=== PATIENT | male | born 2000 | race Caucasian/White ===

== ENCOUNTER 2019-08-02 13:11 | Emergency (ER) | payer OTHER ==
[~2019-08-02] VITALS: Ht 182.9 cm; Wt 81.6 kg
[2019-08-02 13:20] VITALS: BP 138/67
--- NOTE | 2019-08-02 13:51 | PHYS DOC ---
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 Patient states he had 1 episode of vomiting this morning and felt dizzy and lightheadedness for a short time that improved spontaneously. Patient states he was able to eat and drink without problem and feels fine right now. Patient denies fever and chills, upper respiratory infection symptoms, sick contact, focal neuro deficit, history of the same problem. 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 Review of Systems Review of Systems Constitutional: Denies fever or chills [] Eyes: Denies change in visual acuity, redness, or eye pain [] HENT: Denies nasal congestion or sore throat [] Respiratory: Denies cough or shortness of breath [] Cardiovascular: No additional information not addressed in HPI [] GI: Denies abdominal pain, nausea, vomiting, bloody stools or diarrhea [] : Denies dysuria or hematuria [] Musculoskeletal: Denies back pain or joint pain [] Integument: Denies rash or skin lesions [] Neurologic: Denies headache, focal weakness or sensory changes [] Endocrine: Denies polyuria or polydipsia [] All other systems were reviewed and found to be within normal limits, except as documented in this note. Allergies Allergies Allergies Coded Allergies Type Severity Reaction Last Updated Verified No Known Drug Allergies 08/02/19 No Physical Exam Physical Exam Constitutional: Well developed, well nourished, no acute distress, non-toxic appearance. [] HENT: Normocephalic, atraumatic, bilateral external ears normal, oropharynx moist, no oral exudates, nose normal. [] Eyes: PERRLA, EOMI, conjunctiva normal, no discharge. [] Neck: Normal range of motion, no tenderness, supple, no stridor. [] Cardiovascular:Heart rate regular rhythm, no murmur [] Lungs & Thorax: Bilateral breath sounds clear to auscultation [] Abdomen: Bowel sounds normal, soft, no tenderness, no masses, no pulsatile masses. [] Skin: Warm, dry, no erythema, no rash. [] Back: No tenderness, no CVA tenderness. [] Extremities: No tenderness, no cyanosis, no clubbing, ROM intact, no edema. [] Neurologic: Alert and oriented X 3, normal motor function, normal sensory function, no focal deficits noted. [] Psychologic: Affect normal, judgement normal, mood normal. 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 Patient had unremarkable physical exam. Patient tolerated oral intake. Plan discharge patient home to diagnose of acute gastritis. I've spoken with the patient and/or caregivers. I've explained the patient's condition, diagnosis and treatment plan based on information available to me at this time. I've answered the patient's and/or caregivers questions and addressed any concerns. The patient and/or caregivers have a good understanding the patient's diagnosis, condition and treatment plan as can be expected at this point. Vital signs have been stabilized. The patient's condition is stable for discharge from the emergency department. The patient will pursue further outpatient evaluation with her primary care provider or other designated consulting physician as outlined in the discharge instructions. Patient and/or caregivers are agreeable to this plan of care and follow-up instructions have been explained in detail. The patient and/or caregivers have received these instructions in written format and expressed understanding of these discharge instructions. The patient and her caregivers are aware that if any significant change in condition or worsening of symptoms should prompt him to immediately return to this of the closest emergency department. If an emergent department is not readily available I would encourage him to call 911. [place] Disclaimer Mikeon Disclaimer This electronic medical record was generated, in whole or in part, using a voice recognition dictation system. Departure Departure: Impression: Primary Impression: Acute gastritis Disposition: HOME, SELF-CARE (at 1354) Condition: STABLE Referrals: [facility]CPTERRI (PCP) Patient Instructions: Nausea and Vomiting Additional Instructions: Drink plenty of liquids Follow-up with your primary care physician in 3-5 days Return to ER if not getting better Scripts Ondansetron Hcl (ZOFRAN) 4 Mg Tablet 1 TAB PO Q6HRS for nausea and vomiting, #12 TAB Prov: EYAD VELASQUEZ MD 08/02/19 Problem Qualifiers Primary Impression: Acute gastritis Gastritis type: other gastritis Gastritis bleeding: without bleeding Qualified Codes: K29.00 - Acute gastritis without bleeding EYAD VELASQUEZ MD Aug 02, 2019 13:51
[2019-08-02] MEDS ORDERED: ONDA4TAB7 PO (13:55)
== END 2019-08-02 14:10 | disposition home or self-care (01) ==
LOC: ER 13:11
DX: K29.00 Acute gastritis without bleeding (principal)
CPT/HCPCS: 99283

== ENCOUNTER 2021-09-23 14:56 | Emergency (ER) | payer OTHER ==
[~2021-09-23] VITALS: Ht 182.9 cm; Wt 81.6 kg
[~2021-09-23 14:56] MED LIST: ONDA4TAB7 PO
[2021-09-23 15:01] VITALS: BP 146/69
--- NOTE | 2021-09-23 15:19 | PHYS DOC ---
Past History Past Medical History: No Pertinent History Past Surgical History: Other Additional Past Surgical Histo: WISDOM TEETH Alcohol Use: Rarely Adult General Chief Complaint Chief Complaint: EYE PROBLEMS HPI HPI Patient is a 21-year-old male presenting to the emergency department for evaluation of right eye injury that was sustained 5 days ago and he says he is still having pain with looking towards the left. He wears glasses but no contact lenses and says that he was at a trampoline park when he took an awkward jump and he kneed himself in the right eye. He says he has not had any vision changes including no blurred vision or loss of vision but that it hurts when his right eye looks towards the left. He denies any headaches loss of consciousness neck pain or other areas of pain or injury and no weakness numbness or tingling. He went to an urgent care and they said that he needed a CT of his orbits and ordered it to be done as an outpatient but his insurance would not pay for it to be done as an outpatient so he was directed to come to the emergency department for his CT scan. He is in no acute distress with normal vital signs. Review of Systems Review of Systems Constitutional: Denies fever or chills [] Eyes: Denies change in visual acuity, redness. Positive right eye pain. HENT: Denies nasal congestion or sore throat [] Respiratory: Denies cough or shortness of breath [] Cardiovascular: No additional information not addressed in HPI [] GI: Denies abdominal pain, nausea, vomiting, bloody stools or diarrhea [] : Denies dysuria or hematuria [] Musculoskeletal: Denies back pain or joint pain [] Integument: Denies rash or skin lesions [] Neurologic: Denies headache, focal weakness or sensory changes [] All other systems were reviewed and found to be within normal limits, except as documented in this note. Allergies Allergies Allergies Coded Allergies Type Severity Reaction Last Updated Verified No Known Drug Allergies 08/02/19 No Physical Exam Physical Exam Constitutional: Well developed, well nourished, no acute distress, non-toxic appearance. [] HENT: Normocephalic, atraumatic, bilateral external ears normal, oropharynx moist, no oral exudates, nose normal. [] Eyes: PERRLA, EOMI, intact range of motion in all directions of both eyes however he did have pain when looking towards the left but there is no proptosis or hyphema noted. Neck: Normal range of motion, no tenderness, supple, no stridor. [] Cardiovascular:Heart rate regular rhythm, no murmur [] Lungs & Thorax: Bilateral breath sounds clear to auscultation [] Abdomen: Bowel sounds normal, soft, no tenderness, no masses, no pulsatile mas ses. [] Skin: Warm, dry, no erythema, no rash. [] Back: No tenderness, no CVA tenderness. [] Extremities: No tenderness, no cyanosis, no clubbing, ROM intact, no edema. [] Neurologic: Alert and oriented X 3, normal motor function, normal sensory function, no focal deficits noted. [] EKG EKG [] Radiology/Procedures Radiology/Procedures [] Heart Score C/O Chest Pain: No Risk Factors: Risk Factors: DM, Current or recent (<one month) smoker, HTN, HLP, family history of CAD, obesity. Risk Scores: Risk Factors: DM, Current or recent (<one month) smoker, HTN, HLP, family history of CAD, obesity. Course & Med Decision Making Course & Med Decision Making I will check imaging. I offered to give him something for pain but he refused. Patient has findings of a medial orbital wall fracture but no signs of extraocular muscle entrapment. Based off his benign exam with no visual changes and no fevers or systemic symptoms I do not see any reason for emergent transfer to a facility that has facial trauma coverage. I offered to try and arrange follow-up for him but he says he has to get his follow-up through [facility]. I will have the report. Off in a CD made for him and told him he should follow with his doctors at [facility] to get follow-up as soon as possible. I told return to the emergency department for worsening pain vision problems fevers or other concerns as he may require emergent transfer to a facility that has facial trauma coverage. Patient aware and agreeable with plan and verbalized understanding of the above instructions. Dragon Disclaimer Dragon Disclaimer This electronic medical record was generated, in whole or in part, using a voice recognition dictation system. Departure Departure: Impression: Primary Impression: Medial orbital wall fracture Disposition: HOME / SELF CARE / HOMELESS Condition: STABLE Referrals: PCP,UNKNOWN (PCP) Patient Instructions: Facial Fracture Additional Instructions: Follow with your facial trauma specialist which could be OMFS, plastics, ENT, or ophtho. Come back with worsening pain, vision changes or other general concerns. Thank you! Problem Qualifiers Primary Impression: Medial orbital wall fracture Encounter type: initial encounter Fracture type: closed Laterality: right Qualified Codes: S02.831A - Fracture of medial orbital wall, right si de, initial encounter for closed fracture BRYCE DAVIS DO September 23, 2021 15:19
--- NOTE | 2021-09-23 15:51 | RAD ---
Maxillofacial CT without contrast dated 09/23/2021. COMPARISON: None. INDICATION: Pain after injury. TECHNIQUE: Contiguous axial imaging the maxillofacial bones obtained with thin cut coronal and sagittal reconstr uction. One or more of the following individualized dose reduction techniques were utilized for this examinat ion: 1. Automated exposure control 2. Adjustment of the mA and/or kV according to patient size 3. Use of iterative reconstruction technique. FINDINGS: Focal soft tissue swelling over the right orbit. There is a medial orbital blowout fracture on the ri ght with depressed fragments of the medial orbital wall extending into the ethmoid air cells. There i s also extrusion of orbital fat into the fracture defect. No definite extraocular muscle entrapment. Orbital floor on the right is grossly intact. The lateral wall of the right orbit is intact. The orbi aidan roof and zygomatic arch is intact. Nasal bones are grossly intact. No left-sided fracture identif ied. There is subtotal opacification of the right ethmoid air cells. Mild mucosal thickening of the left e thmoid air cells. Mild mucosal thickening of the right maxillary sinus. Sphenoid and frontal sinuses are clear. Mastoid air cells and middle ears are clear. The right ostiomeatal unit is occluded. IMPRESSION: 1. Depressed medial orbital blowout fracture on the right. No CT evidence of extraocular muscle entra pment. 2. Otherwise no evidence of displaced facial fracture. 3. Paranasal sinus opacification, intrasinus hemorrhage or mucosal disease. There is occlusion of the right ostiomeatal unit. Electronically signed by: Iraj Sy MD (09/23/2021 3:49 PM) ALESHA
== END 2021-09-23 16:33 | disposition home or self-care (01) ==
LOC: ER 14:56
DX: S02.831A Fracture of medial orbital wall, right side, initial encounter for closed fracture (principal); W51.XXXA Accidental striking against or bumped into by another person, initial encounter; Y93.39 Activity, other involving climbing, rappelling and jumping off; Y92.830 Public park as the place of occurrence of the external cause; Y99.8 Other external cause status
CPT/HCPCS: 70480; 99284